=== PATIENT | male | born 1990 | race Caucasian/White ===

== ENCOUNTER 2017-04-25 18:50 | Emergency (ER) | payer OTHER ==
[~2017-04-25] VITALS: Ht 180.3 cm; Wt 140.6 kg
[2017-04-25 18:55] VITALS: BP 124/80
--- NOTE | 2017-04-25 19:33 | NUR ---
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 HAD [facility]ELLEY CATH PLACED. PT STATES "THE SKIN IS PEELING" REPORTS MILD DYSURIA. DENIES FEVERS, NO ABD PAIN. SX JANELL-INTACT MED HX: NONE RX: POTASSIUM, NORCO, AMBIEN
--- NOTE | 2017-04-25 19:35 | NUR ---
Patient being evaluated by physician at bedside.
[2017-04-25 20:03] LABS: APPEARANCE,URINE CLEAR (CLEAR); BILIRUBIN,URINE NEGATIVE (NEGATIVE); BLOOD, URINE NEGATIVE (NEGATIVE); COLOR,URINE YELLOW (YELLOW); LEUKOCYTE ESTERASE ,URINE TRACE (NEGATIVE); NITRITE, URINE NEGATIVE (NEGATIVE); UGLUCOSE NEGATIVE (NEGATIVE)
[2017-04-25 20:19] LABS: RBC,URINE 0-5 (RARE) /HPF (0-5); WBC,URINE 0-5 (RARE) /HPF (0-5)
--- NOTE | 2017-04-25 20:37 | NUR ---
Patient discharged with v/s stable. Written and verbal after care instructions given and explained. Patient alert, oriented and verbalized understanding of instructions. Ambulatory with steady gait. All questions addressed prior to discharge. ID band removed. Patient advised to follow up with PMD. Rx of LOTRINMIN 1%, DIFLUCAN 150MG, AND PRYRIDIUM 200MG given. Patient educated on indication of medication including possible reaction and side effects. Opportunity to ask questions provided and answered.
[2017-04-25 20:38] VITALS: BP 119/72
== END 2017-04-25 20:37 | disposition home or self-care (01) ==
LOC: MED 18:50
DX: B37.9 Candidiasis, unspecified (principal); Z98.84 Bariatric surgery status
CPT/HCPCS: 81001; 99283

== ENCOUNTER 2017-10-31 17:32 | Emergency (ER) | payer OTHER ==
[~2017-10-31] VITALS: Ht 175.3 cm; Wt 105.7 kg
[2017-10-31 17:46] VITALS: BP 114/71
--- NOTE | 2017-10-31 18:57 | NUR ---
PT AMBULATES TO BED 1
--- NOTE | 2017-10-31 19:05 | NUR ---
PT PRESENTS TO ED WITH EPIGASTRIC PAIN, NAUSEA, SOAR THROAT WITH SWOLLEN TONSILS, AND RIGHT EAR PAIN/PRESSURE X1 DAY. PT STATES HX OF GASTRIC BYPASS SX THREE MONTHS AGO. PT IS AFEBRILE. NO EXUDATE ON TONSILS. NO DRAINAGE TO RIGHT EAR. A&OX4. VSS. POSITIONED IN BED WITH HOB ELEVATED AND SIDE RAIL UP. ER MD AWARE. CONTINUE TO MONITOR.
--- NOTE | 2017-10-31 20:52 | NUR ---
Dr. Wade evaluating patient at bedside.
--- NOTE | 2017-10-31 21:16 | NUR ---
THROAT CULTURE COLLECTED. PT TOLLERATED PROCEDURE WELL.
[2017-10-31 21:52] VITALS: BP 114/70
--- NOTE | 2017-10-31 21:52 | NUR ---
Patient discharged with v/s stable. Written and verbal after care instructions given and explained. Patient alert, oriented and verbalized understanding of instructions. Ambulatory with steady gait. All questions addressed prior to discharge. ID band removed. Patient advised to follow up with PMD. Rx of Zofran, Amoxicillin, and Tylenol given. Patient educated on indication of medication including possible reaction and side effects. Opportunity to ask questions provided and answered.
== END 2017-10-31 21:52 | disposition home or self-care (01) ==
LOC: MED 17:32
DX: J02.9 Acute pharyngitis, unspecified (principal); Z98.84 Bariatric surgery status
CPT/HCPCS: 81002; 87081; 99284

== ENCOUNTER 2018-04-23 10:19 | Emergency (ER) | payer OTHER ==
[~2018-04-23] VITALS: Ht 175.3 cm; Wt 92.5 kg
--- NOTE | 2018-04-23 10:55 | NUR ---
PT AMBULATES TO BED 1
--- NOTE | 2018-04-23 11:00 | NUR ---
27 Y/O M PRESENTS TO THE ED W/C/O,COUGH WITH PLEGM AND HEADACHE X2 DAYS. DIMINISHED BREATH SOUNDS. NO S/S DISTRESS. PT DENIES N/V/D; SKIN IS INTACT, PINK/WARM/DRY; AAOX4, PERRL, WITH EVEN AND STEADY GAIT; BREATHING UNLABORED; HR EVEN AND REGULAR, BL PERIPHERAL PULSES PRESENT; BS ACTIVE X4, NO TENDERNESS TO PALPATION, NO HEPATOSPLENOMEGALLY PALPATED, RESONANT TO PERCUSSION; PT DENIES ANY FEVER, CP AT THIS TIME; PT STATES 8/10 PAIN AT THIS TIME; VSS; PATIENT POSITIONED FOR COMFORT; HOB ELEVATED; BEDRAILS UP X2; BED DOWN. HX: ASTHMA
[2018-04-23 11:04] VITALS: BP 108/65
[2018-04-23] MEDS ORDERED: diphenhydrAMINE 50 MG/ML VIAL IM ONE (11:55)
[2018-04-23] MEDS ORDERED: KETOROLAC 60 MG/2 ML VIAL IM ONE (11:55)
[2018-04-23] MEDS ORDERED: ALBUTEROL SULFATE/IPRATROPIU 3 ML SOL IH ONE (11:55)
--- NOTE | 2018-04-23 12:04 | NUR ---
[facility] THERAPY GIVEN ORDERED ENCOURAGED PATIENT WITH ACKNOWLEDGEMENT FOR DEEP BREATHING DURING THERAPY
[2018-04-23 12:30] VITALS: BP 110/69
--- NOTE | 2018-04-23 14:44 | NUR ---
Patient discharged with v/s stable. Written and verbal after care instructions given and explained. Patient alert, oriented and verbalized understanding of instructions. Ambulatory with steady gait. All questions addressed prior to discharge. ID band removed. Patient advised to follow up with PMD. Rx of LEVAQUIN, PREDNISONE, PROMETHAZINE given. Patient educated on indication of medication including possible reaction and side effects. Opportunity to ask questions provided and answered.
== END 2018-04-23 14:44 | disposition home or self-care (01) ==
LOC: MED 10:19
DX: J03.90 Acute tonsillitis, unspecified (principal); R19.7 Diarrhea, unspecified; R11.10 Vomiting, unspecified; J45.909 Unspecified asthma, uncomplicated
CPT/HCPCS: 87804; 94640; 96372; 99283; J1200; J1885; J7620; 36415

== ENCOUNTER 2018-12-10 18:37 | Emergency (ER) | payer OTHER ==
[~2018-12-10] VITALS: Ht 175.3 cm; Wt 89.5 kg
[2018-12-10 18:50] VITALS: BP 123/73
--- NOTE | 2018-12-10 19:03 | NUR ---
28/m presents to ED, requesting for testing for chlamydia. Pt reports that his sexual partner tested positive for chlamydia. Pt awake and alert, skin color normal warm and dry, rr even and unlabored.
--- NOTE | 2018-12-10 19:30 | NUR ---
KALPANA Moreno evaluating pt
[2018-12-10] MEDS ORDERED: AZITHROMYCIN 250 MG TAB PO ONE (19:40)
[2018-12-10] MEDS ORDERED: cefTRIAXone 250 MG in LIDOCAINE MPF 1% 0.9 ML IM ONE (19:40)
[2018-12-10 20:01] VITALS: BP 123/73
--- NOTE | 2018-12-10 20:02 | NUR ---
Patient discharged with v/s stable. Written and verbal after care instructions given and explained. Patient verbalized understanding. Ambulatory with steady gait. All questions addressed prior to discharge. Advised to follow up with PMD.
[2018-12-10 23:15] LABS: APPEARANCE,URINE CLEAR (CLEAR); BILIRUBIN,URINE NEGATIVE (NEGATIVE); BLOOD, URINE NEGATIVE (NEGATIVE); COLOR,URINE YELLOW (YELLOW); LEUKOCYTE ESTERASE ,URINE NEGATIVE (NEGATIVE); NITRITE, URINE NEGATIVE (NEGATIVE); PH,URINE 6.5 (5.0-9.0); UGLUCOSE NEGATIVE (NEGATIVE)
== END 2018-12-10 20:02 | disposition home or self-care (01) ==
LOC: MED 18:37
DX: Z11.3 Encounter for screening for infections with a predominantly sexual mode of transmission (principal); J45.909 Unspecified asthma, uncomplicated
CPT/HCPCS: 36415; 81003; 96372; 99283; J0696; J2001

== ENCOUNTER 2019-12-05 21:40 | Emergency (ER) | payer OTHER ==
[~2019-12-05] VITALS: Ht 180.3 cm; Wt 95.7 kg
[2019-12-05 21:47] VITALS: BP 132/77
--- NOTE | 2019-12-05 21:50 | NUR ---
snellen chart as follows: OD: 20/50 OS: 20/40 OU: 20/50
--- NOTE | 2019-12-05 21:55 | NUR ---
To ED bed 09
--- NOTE | 2019-12-05 22:00 | NUR ---
c/o bilat eye discharge x 2 days. described discharge as " clear and greenish" +BLURRY VISION, ITCHINESS, DISCOMFORT, REDNESS, WATERY EYES. 6/10 PAIN. A&O X4. STEADY GAIT. VSS. PT IS TAKING OTC KETOTIFEN. pmhx: GASTRIC BYPASS allx: shellfish
[2019-12-05 22:26] VITALS: BP 132/77
--- NOTE | 2019-12-05 22:26 | NUR ---
Patient discharged with v/s stable. Written and verbal after care instructions given and explained. Patient alert, oriented and verbalized understanding of instructions. Ambulatory with steady gait. All questions addressed prior to discharge. ID band removed. Patient advised to follow up with PMD. Rx of POLYTRIM OPHTHALMIC CARA given. Patient educated on indication of medication including possible reaction and side effects. Opportunity to ask questions provided and answered.
== END 2019-12-05 22:26 | disposition home or self-care (01) ==
LOC: MED 21:40
DX: H10.9 Unspecified conjunctivitis (principal); J45.909 Unspecified asthma, uncomplicated
CPT/HCPCS: 99283